=== PATIENT | female | born 1990 | race Caucasian/White ===

== ENCOUNTER → 2020-03-30 | Outpatient (REF) | payer BC | LOC: M PLALAB 10:12 | PROVIDERS: ATTEND Advanced Practice Midwife | DX: Z34.02 Encounter for supervision of normal first pregnancy, second trimester (principal) ==

== ENCOUNTER → 2020-04-27 | Outpatient (CLI) | payer BC ==
--- NOTE | 2020-04-27 09:00 | REP ---
INDICATION: F/U ANATOMY COMPARISON: None. TECHNIQUE: Transabdominal obstetrical ultrasound with color Doppler evaluation. FINDINGS: Examination demonstrates a single live intrauterine in breech presentation. motion is identified by technologist. Placenta is noted anterior and grade 1 without evidence for placenta previa or abruption. Amniotic fluid volume is normal. Cervix measures 3.4 cm in length and appears closed.. Gestational age by LMP 28 weeks 0 days with YULI 07/20/2020. Gestational age by current measurements 27 weeks 1 day with YULI 07/26/2020. FHR equals 140 beats per minute. ELINOR: 11.8 cm Estimated weight 1024 grams (12thpercentile). Anatomical assessment demonstrates normal structures including cranium, cavum septum pellucidum, falx, cerebellum, facial features, four-chamber heart, stomach, bladder, and three-vessel cord.. IMPRESSION: 1. Single live intrauterine in breech presentation demonstrating appropriate estimated weight. 2. Anatomical structures appear relatively normal. The stomach is relatively normal in appearance and if necessary ultrasound and or GI examination can be considered for further investigation if necessary. <Electronically signed by Milad Funes > 04/27/20 [id number]
== END ==
LOC: M WHC 07:56
PROVIDERS: ATTEND Advanced Practice Midwife
DX: Z36.9 Encounter for antenatal screening, unspecified (principal); Z3A.27 27 weeks gestation of pregnancy

== ENCOUNTER → 2020-05-04 | Outpatient (REF) | payer BC, OTHER ==
[2020-05-04 13:44] LABS: HEMATOCRIT 36.9 % (36.0-47.0); HEMOGLOBIN 12.4 g/dl (12.0-15.5); MEAN CORPUSCULAR HEMOGLOBIN 31.4 pg (27.0-33.0); MEAN CORPUSCULAR HGB CONC 33.6 g/dl (32.0-36.5); MEAN CORPUSCULAR VOLUME 93.4 fl (80.0-96.0); PLATELET COUNT, AUTOMATED 232 10^3/uL (150-450); RED BLOOD COUNT 3.95 10^6/uL (4.00-5.40); WHITE BLOOD COUNT 14.5 10^3/uL (4.0-10.0)
== END ==
LOC: M LABDRWAD 12:39
PROVIDERS: ATTEND Advanced Practice Midwife
DX: Z34.02 Encounter for supervision of normal first pregnancy, second trimester (principal)

== ENCOUNTER 2020-05-11 14:45 | Outpatient (CLI) | payer BC, OTHER ==
[~2020-05-11] VITALS: Ht 162.6 cm; Wt 92.4 kg
[2020-05-11 14:59] VITALS: BP 133/79
[2020-05-11] MEDS ORDERED: PRENTAB9 PO (15:15)
[2020-05-11] MEDS ORDERED: [UNRECOGNIZED DRUG - CODE] PO (15:15)
[2020-05-11 15:56] LABS: HEMATOCRIT 37.5 % (36.0-47.0); HEMOGLOBIN 12.6 g/dl (12.0-15.5); MEAN CORPUSCULAR HEMOGLOBIN 30.8 pg (27.0-33.0); MEAN CORPUSCULAR HGB CONC 33.6 g/dl (32.0-36.5); MEAN CORPUSCULAR VOLUME 91.7 fl (80.0-96.0); PLATELET COUNT, AUTOMATED 231 10^3/uL (150-450); RED BLOOD COUNT 4.09 10^6/uL (4.00-5.40); WHITE BLOOD COUNT 12.3 10^3/uL (4.0-10.0)
--- NOTE | 2020-05-11 16:35 | REP ---
INDICATION: post fall COMPARISON: 04/27/2020 TECHNIQUE: Transabdominal obstetrical ultrasound with color Doppler evaluation. FINDINGS: Examination demonstrates a single live intrauterine in breech presentation. motion is identified by technologist. Placenta is noted anterior and grade 0 without evidence for placenta previa or abruption. Amniotic fluid volume is normal. Cervix measures 3.6 cm in length and appears closed. Amniotic fluid index: 12.7 cm (9.0-23.4) Biophysical profile score: 8/8. Umbilical artery 1 SD ratio: 2.60 (1.96-4.10) Umbilical artery 2 SD ratio: 2.10 (1.96-4.10) Gestational age by 1st U/S 30 weeks 0 days with YULI 07/20/2020. Gestational age by current measurements 28 weeks 1 day with YULI 08/02/2020. FHR equals 155 beats per minute. Estimated weight 1108 grams (less than 3rdpercentile based on age by 1st ultrasound). IMPRESSION: 1. Single live intrauterine in breech presentation demonstrating normal amniotic fluid index, biophysical profile score. 2. Questionable discrepancy between gestational age and estimated weight warrants correlation. <Electronically signed by Milad Funes > 05/11/20 [id number]
--- NOTE | 2020-05-11 18:06 | IPNPDOC ---
Text Note Date of Service The patient was seen on 05/11/20. NOTE Outpatient 29yo G1 YULI 07/20/2020. Presents at 30wks after falling on ice, landing on arm and side of abdomen. Denies LOF, bleeding or regular UC. Reports good activity. No distress Cat I tracing BPP 10/14, growth sono <3% 1108gm, discrepancies noted between current sono and most recent sono. Dopplers 2.60 and 2.10. ELINOR 12.7. No previa or evidence abruption KB 0.0030 discharged home after 4 hours. Reviewed discrepant sono's with patient. Ordered f/u for 3 wks with BPP Discharged home. Warnings reviewed. Keep appt Thursday VS,Fishbone, I+O VS, Fishbone, I+O Laboratory Tests 05/11/20 15:30 Vital Signs Date Time Temp Pulse Resp B/P (MAP) Pulse Ox O2 Delivery O2 Flow Rate FiO2 05/11/20 14:59 99.7 86 18 133/79 (97) Charito An CNM May 11, 2020 18:06
== END 2020-05-11 18:05 | disposition home or self-care (01) ==
LOC: M LDO 14:45
PROVIDERS: ATTEND Advanced Practice Midwife
DX: O99.891 Other specified diseases and conditions complicating pregnancy (principal); W00.0XXA Fall on same level due to ice and snow, initial encounter; Z3A.30 30 weeks gestation of pregnancy
CPT/HCPCS: 36415; 59025; 76816; 76819; 76820; 85027; 85460; G0378; G0463

== ENCOUNTER → 2020-05-18 | Outpatient (CLI) | payer BC ==
[~2020-05-18] MED LIST: PRENTAB9 PO; [UNRECOGNIZED DRUG - CODE] PO
--- NOTE | 2020-05-18 15:04 | REP ---
INDICATION: GROWTH/BPP COMPARISON: 05/11/2020 TECHNIQUE: Transabdominal obstetrical ultrasound with color Doppler evaluation. FINDINGS: Examination demonstrates a single live intrauterine in cephalic presentation. motion is identified by technologist. Placenta is noted anterior and grade 1 without evidence for placenta previa or abruption. Amniotic fluid volume is normal. Cervix measures 3.0 cm in length and appears closed.. Gestational age by LMP 31 weeks 0 days with YULI 07/20/2020. Gestational age by current measurements 28 weeks 4 days with YULI 08/06/2020. FHR equals 155 beats per minute. ELINOR: 11.0 cm (8.8-23.8) Biophysical profile score: 8/8 Estimated weight 1215 grams (less than 3rdpercentile based on age at 31 weeks 0 days). Umbilical artery 1 SD ratio: 2.56 (1.90-3.98) Umbilical artery 2 SD ratio: 2.68 IMPRESSION: 1. Single live advanced gestation in cephalic presentation. Less than expected interval growth is noted when using the given age by EDC. 2. Normal amniotic fluid volume, biophysical profile score, and umbilical artery Doppler. <Electronically signed by Milad Funes > 05/18/20 [id number]
== END ==
LOC: M WHC 09:28
PROVIDERS: ATTEND Advanced Practice Midwife
DX: O26.843 Uterine size-date discrepancy, third trimester (principal); O36.5930 Maternal care for other known or suspected poor fetal growth, third trimester, not applicable or unspecified; Z3A.31 31 weeks gestation of pregnancy

== ENCOUNTER → 2020-05-25 | Outpatient (CLI) | payer BC ==
--- NOTE | 2020-05-26 19:58 | REP ---
INDICATION: IUGR,GROWTH,BPP COMPARISON: 05/18/2020 TECHNIQUE: Transabdominal obstetrical ultrasound with color Doppler evaluation. FINDINGS: Examination demonstrates a single live intrauterine in cephalic presentation. motion is identified by technologist. Placenta is noted anterior and grade 1 without evidence for placenta previa or abruption. Amniotic fluid volume is normal. Cervix measures 3.5 cm in length and appears closed.. Gestational age by LMP and 1st ultrasound 32 weeks 0 days with YULI 07/20/2020. Gestational age by current measurements 30 weeks 0 days with YULI 08/03/2020. FHR equals 160 beats per minute. BPD: 7.7 cm at 30 weeks 6 days HC: 27.7 cm at 30 weeks 2 days AC: 26.6 cm at 30 weeks 5 days FL: 5.6 cm at 29 weeks 3 days HL: 4.9 cm at 28 weeks 6 days HC/AC: 1.04 Estimated weight 1543 grams (less than 3rdpercentile). ELINOR: 12.9 cm (8.6-24.2) Biophysical profile score: 8/8 Umbilical artery 1 SD ratio: 2.33 (1.84-3.87) Umbilical artery 2 SD ratio: 2.37 IMPRESSION: Single live advanced gestation in cephalic presentation demonstrating less than expected interval growth. Amniotic fluid index and biophysical profile score are normal. <Electronically signed by Milad Funes > 05/26/201953
== END ==
LOC: M WHC 15:24
PROVIDERS: ATTEND Advanced Practice Midwife
DX: O36.5930 Maternal care for other known or suspected poor fetal growth, third trimester, not applicable or unspecified (principal); O26.843 Uterine size-date discrepancy, third trimester; Z3A.32 32 weeks gestation of pregnancy

== ENCOUNTER → 2020-06-01 | Outpatient (CLI) | payer BC ==
--- NOTE | 2020-06-01 16:51 | REP ---
INDICATION: IUGR,BPP. COMPARISON: 05/25/2020. TECHNIQUE: Multiple sonographic images of the gravid uterus. FINDINGS: There is a single intrauterine gestation in the breech presentation. The placenta is anterior with grade 2 maturity. There is no placenta previa. heart rate is 140 beats per minute. Subjectively the amniotic fluid volume is normal. ELINOR: 13.6 (8.3-24.5). biophysical profile: Breathing 2 Tone 2 Movement 2 AFB 2 Total: 10/14 Umbilical artery Doppler assessment: Umbilical artery 1: PSV 35.1 centimeters/second EDV 13.6 centimeters/second S/D 2.58 (1.79-3.77) RI 0.61 (0.48-0.74) Umbilical artery 2: PSV 38.5 cm/S EDV 13.1 cm/S SD 2.94 RI 0.66 IMPRESSION: biophysical profile as above. <Electronically signed by Haseeb Hayden > 06/01/20 1817
== END ==
LOC: M WHC 07:56
PROVIDERS: ATTEND Advanced Practice Midwife
DX: O26.849 Uterine size-date discrepancy, unspecified trimester (principal); Z3A.00 Weeks of gestation of pregnancy not specified

== ENCOUNTER → 2020-06-08 | Outpatient (CLI) | payer BC ==
--- NOTE | 2020-06-08 08:56 | REP ---
INDICATION: IUGR,BPP,GROWTH. COMPARISON: 06/01/2020, 05/25/2020. TECHNIQUE: Standard follow-up Ob ultrasound with the growth measurements, umbilical artery Doppler and biophysical profile FINDINGS: Scanning demonstrates a viable single intrauterine gestation in a cephalic lie. motion is observed and heart rate is recorded at 138 beats per minute. The posterior, grade II placenta is seen without evidence of previa. Amniotic fluid is subjectively normal. The ELINOR measurement is 11.5 cm (normal 8.1-24.8). The closed cervical length is measured at 3.2 cm transabdominally. No extrauterine abnormality is observed. There has been appropriate interval growth. Umbilical artery Doppler shows SD ratios of 3.07 and 2.5 in the 2 umbilical arteries in their mid course. Normal forward diastolic flow is maintained. Cord insertion is mid placental. No anatomic screening was performed. Biometry chart: BPD 8.1 cm; 32 weeks 5 days Head circumference 28.7 cm; 31 weeks 4 days Abdominal circumference 27.8 cm; 31 weeks 6 days Femur length 5.8 cm; 30 weeks 1 days Humeral length 5.3 cm; 30 weeks 4 days HC/AC ratio normal 1.03 Cephalic index normal 0.81 Estimated weight 1752 grams, 3 pounds 13 ounces, <3rd percentile for 34 weeks 0 days. Biophysical profile: Breathing 2, tone 2, movement 2, AFV 2. IMPRESSION: Viable single intrauterine gestation at 31 weeks 3 days by today's composite sonographic criteria. Expected gestational age estimate based on prior initial sonography is 34 weeks is 0 days. YULI by prior sonography 07/20/2020. The growth curves are flattened. Findings consistent with IUGR Biophysical profile score: 8/8 <Electronically signed by Tutu Reynolds > 06/08/20 0852
== END ==
LOC: M WHC 08:04
PROVIDERS: ATTEND Advanced Practice Midwife
DX: O36.5930 Maternal care for other known or suspected poor fetal growth, third trimester, not applicable or unspecified (principal); O26.849 Uterine size-date discrepancy, unspecified trimester; Z3A.31 31 weeks gestation of pregnancy

== ENCOUNTER → 2020-06-15 | Outpatient (CLI) | payer BC ==
--- NOTE | 2020-06-15 09:18 | REP ---
INDICATION: IUGR,BPP. COMPARISON: 06/08/2020. TECHNIQUE: Multiple sonographic images of the gravid uterus. FINDINGS: There is a single intrauterine gestation in a cephalic presentation. The placenta is anterior with grade 1 maturity. There is no previa. There is a three-vessel cord. The cord inserts centrally onto the placenta. Cervix measures 3.4 cm. heart rate is 124 beats per minute. Amniotic fluid index is 12.7. Normal is 7.9-24.9. Gestational age according to the 1st ultrasound this gestational is 35 weeks 0 days with an YULI of 07/20/2020. The LMP is unknown. biophysical profile: Breathing 2 Tone 2 Movement 2 AFV 2 Total 8/8. Umbilical artery Doppler evaluation: Umbilical artery 1: PSV 31.2 cm/S EDV 12.2 cm/S S/D 2.56 (1.68-3.59) RI 0.61 (0.46-0.72 Umbilical artery 2: PSV 37.5 cm/S YULI 12.2 cm/S S/D 3.07 RI 0.67 IMPRESSION: measurements as above. <Electronically signed by Haseeb Hayden > 06/15/20 0914
== END ==
LOC: M WHC 08:04
PROVIDERS: ATTEND Advanced Practice Midwife
DX: O26.849 Uterine size-date discrepancy, unspecified trimester (principal)

== ENCOUNTER 2020-06-22 13:57 | Outpatient (CLI) | payer BC, OTHER ==
[~2020-06-22] VITALS: Ht 162.6 cm; Wt 95.3 kg
[~2020-06-22 13:57] MED LIST changes: -IBUP80TA PO; -PERCOCET PO; -TUMS500C PO
[2020-06-22 14:24] VITALS: BP 138/92
[2020-06-22] MEDS ORDERED: BETAMETHASONE SOLUSPAN 6MG/ML 5ML VIAL (J0702 PER 3MG) IM ONE ×2 (14:40→15:00)
[2020-06-23] MEDS ORDERED: TUMS500C PO (14:14)
== END 2020-06-22 15:10 | disposition home or self-care (01) ==
LOC: M LDO 13:57
PROVIDERS: ATTEND Advanced Practice Midwife
DX: O36.5930 Maternal care for other known or suspected poor fetal growth, third trimester, not applicable or unspecified (principal); Z3A.36 36 weeks gestation of pregnancy; O13.3 Gestational [pregnancy-induced] hypertension without significant proteinuria, third trimester; Z79.899 Other long term (current) drug therapy
CPT/HCPCS: 96372; G0378; J0702

== ENCOUNTER → 2020-06-22 | Outpatient (CLI) | payer BC ==
[~2020-06-22] MED LIST changes: +IBUP80TA PO; +PERCOCET PO; +TUMS500C PO
--- NOTE | 2020-06-22 09:36 | REP ---
INDICATION: IUGR,GROWTH,BPP COMPARISON: 06/15/2020 TECHNIQUE: Transabdominal obstetrical ultrasound with color Doppler evaluation. FINDINGS: Examination demonstrates a single live intrauterine in cephalic presentation. motion is identified by technologist. Placenta is noted anterior and grade 2 without evidence for placenta previa or abruption. Amniotic fluid volume is normal. Cervix measures 3.2 cm in length and appears closed.. Gestational age by LMP and 1st U/S 36 weeks 0 days with YULI 07/20/2020. Gestational age by current measurements 31 weeks 3 days with YULI 08/21/2020. FHR equals 152 beats per minute. BPD: 8.1 cm at 32 weeks 5 days HC: 29.7 cm at 32 weeks 6 days AC: 25.6 cm at 29 weeks 5 days FL: 6.0 cm at 31 weeks 1 day HL: 5.3 cm at 30 weeks 5 days HC/AC: 1.16 Estimated weight 1622 grams (less than 3rdpercentile based on age by 1st ultrasound at 36 weeks 0 days). ELINOR: 12.2 cm Biophysical profile score: 8/8 Umbilical artery SD ratio: 3.05, 2.84 (1.64-3.51) IMPRESSION: 1. Single live intrauterine in cephalic presentation. Less than expected interval growth is noted based on given age at 36 weeks 0 days by 1st ultrasound and YULI. 2. ELINOR and biophysical profile score are normal. <Electronically signed by Milad Funes > 06/22/20 0933
== END ==
LOC: M WHC 06:36
PROVIDERS: ATTEND Advanced Practice Midwife
DX: O36.5930 Maternal care for other known or suspected poor fetal growth, third trimester, not applicable or unspecified (principal)

== ENCOUNTER 2020-06-23 14:05 | Inpatient (IN) | payer BC, OTHER ==
[2020-06-23] VITALS (11 sets, daily range): BP systolic 135–173; BP diastolic 64–93
[~2020-06-23] VITALS: Ht 162.6 cm; Wt 97.6 kg
[2020-06-23] MEDS ORDERED: TUMS500C PO (14:14)
[2020-06-23] MEDS ORDERED: OXYTOCIN DRIP 30 UNITS in IV 1 EA IV PRN (14:15)
[2020-06-23] MEDS ORDERED: LIDOCAINE 1% MDV 20ML VIAL INFIL PRN (14:15)
[2020-06-23] MEDS ORDERED: LACTATED RINGER'S 1000 ML IV STA (14:15)
[2020-06-23] MEDS ORDERED: BETAMETHASONE SOLUSPAN 6MG/ML 5ML VIAL (J0702 PER 3MG) IM ONE (14:20)
[2020-06-23 14:58] LABS: HEMATOCRIT 35.6 % (36.0-47.0); HEMOGLOBIN 12.7 g/dl (12.0-15.5); MEAN CORPUSCULAR HEMOGLOBIN 32.4 pg (27.0-33.0); MEAN CORPUSCULAR HGB CONC 35.7 g/dl (32.0-36.5); MEAN CORPUSCULAR VOLUME 90.8 fl (80.0-96.0); PLATELET COUNT, AUTOMATED 192 10^3/uL (150-450); RED BLOOD COUNT 3.92 10^6/uL (4.00-5.40); WHITE BLOOD COUNT 24.7 10^3/uL (4.0-10.0)
[2020-06-23] MEDS: miSOPROStol 50MCG 1/2 TABLET PO SCH ×3 (15:00→23:14)
[2020-06-23 15:21] LABS: ALT/SGPT 14 U/L (12-78); BILIRUBIN,TOTAL 0.2 MG/DL (0.2-1.0); CREATININE FOR GFR 0.71 MG/DL (0.55-1.30); GLOMERULAR FILTRATION RATE > 60.0 (>60); LDH LACTATE DEHYDROGENASE 168 U/L (84-246); URIC ACID 6.5 MG/DL (2.6-6.0)
--- NOTE | 2020-06-23 15:57 | HPE ---
HISTORY AND PHYSICAL DATE OF ADMISSION: 06/23/2020 SUBJECTIVE: Tonie is a 29-year-old 1, para 0 at 36 weeks and 1 day with an estimated date of confinement (EDC) of 07/20/2020 based on last menstrual period and confirmed by first trimester ultrasound. She presents to labor and delivery today for induction of labor per consult with Dr. Maryan Chan due to gestational hypertension and intrauterine growth restriction that has demonstrated no growth in the last 2 weeks. Her care was initiated in [place], [place], with a transfer of care to [facility] at 24 weeks gestation. Her course complicated by intrauterine growth restriction (IUGR) that started at 30 weeks gestation followed by gestational hypertension. OBSTETRIC HISTORY: Prima . OBSTETRIC LABORATORY DATA: O positive, antibody screen negative, hepatitis B surface antigen negative, HIV negative, Gonorrhea and chlamydia negative, T. pallidum negative, Varicella immune, rubella immune. Pap normal. Quad screen negative for aneuploidy and her AFP negative for open neural tube defect. Cystic fibrosis carrier screening negative. Gestational diabetic screening normal at 122, and her GBS is negative. PAST MEDICAL HISTORY: Asthma. FAMILY HISTORY: Malignant tumor of testes, leukemia, depression. SURGERIES: None. SOCIAL HISTORY: The patient is . She is a former smoker. She denies alcohol use. Denies any current drug use during her . She is employed by [employer]. Denies history of sexually transmitted infections. Denies history of abuse: physical, sexual and emotional. ALLERGIES: No known drug allergies. CURRENT MEDICATION: vitamin. OBJECTIVE: Temperature 98.8, pulse 72, respirations 20, blood pressure (BP) is 148/84. She is alert and oriented times three. heart rate is 130 with moderate variability. Positive accelerations. Negative decelerations. There is no pattern of regular contractions. Abdomen is gravid, cephalic presentation. Estimated weight 4 pounds. Sterile vaginal exam: Closed, 50% effaced, -2 station, posterior, moderate texture. No show. Ultrasound yesterday on 06/22/2020 demonstrated fetus in cephalic presentation. Estimated weight 1622 grams, which is less than the 3rd% percentile, and a decrease from the prior growth ultrasound. Biophysical profile was 8/8. Her amniotic index (ELINOR) was 12.2. ASSESSMENT: Intrauterine at 36 weeks, 1/7 day. heart rate category 1. IUGR less than the third percentile, gestational hypertension. PLAN: Admit the patient to labor and delivery. Saline lock for intravenous (IV) access. She has received her second betamethasone injection, 12 mg. I plan to order routine laboratories as well as repeat pre-eclamptic profile. Out of bed ad imelda. Regular diet at this time. I plan to start misoprostol 50 mcg by mouth every 4 hours for cervical ripening. May consider Jacob bulb insertion. Cook's catheter. May consider artificial rupture of membranes (AROM) at some pint. Will likely start Pitocin for labor induction when cervix is more ripe for labor. The patient is considering IV pain medications and/or an epidural for her labor coping when she is in active labor. I did review risks, benefits, and alternatives with the patient. She and her 's questions have been answered. She has been verbally consented for emergency surgery and blood products if they are necessary. I do anticipate cervical ripening. GUILLE
[2020-06-23] MEDS: CALCIUM CARBONATE 500 MG CHEW U/D PO PRN (18:49)
[2020-06-24] VITALS (22 sets, daily range): BP systolic 125–173; BP diastolic 63–96
[2020-06-24] MEDS: CALCIUM CARBONATE 500 MG CHEW U/D PO PRN ×4 (00:20→13:51)
[2020-06-24] MEDS: miSOPROStol 50MCG 1/2 TABLET PO SCH ×2 (04:01→08:09)
[2020-06-24] MEDS ORDERED: LR 1,000 ML IV SCH ×2 (08:45→15:35)
[2020-06-24] MEDS ORDERED: OXYTOCIN DRIP 30 UNITS in IV 1 EA IV SCH ×2 (08:45→15:35)
[2020-06-24] MEDS ORDERED: BICITRA 30ML SOLN UDC PO ONE (14:40)
[2020-06-24] MEDS ORDERED: AZITHROMYCIN INJ 500 MG, VIAL MATE ADAPTER 1 EACH in NS 250 ML IV ONE (14:40)
[2020-06-24] MEDS ORDERED: ceFAZolin SOD 2 GM in IV 1 EA IV ONE (14:40)
[2020-06-24] MEDS ORDERED: LACTATED RINGER'S 1000 ML IV STA (14:40)
[2020-06-24 15:03] LABS: HEMOGLOBIN 13.5 g/dl (12.0-15.5); MEAN CORPUSCULAR HEMOGLOBIN 31.9 pg (27.0-33.0); MEAN CORPUSCULAR HGB CONC 34.6 g/dl (32.0-36.5); MEAN CORPUSCULAR VOLUME 92.2 fl (80.0-96.0); PLATELET COUNT, AUTOMATED 222 10^3/uL (150-450); RED BLOOD COUNT 4.23 10^6/uL (4.00-5.40)
[2020-06-24 15:26] LABS: ALT/SGPT 16 U/L (12-78); BILIRUBIN,TOTAL 0.2 MG/DL (0.2-1.0); CREATININE FOR GFR 0.78 MG/DL (0.55-1.30); GLOMERULAR FILTRATION RATE > 60.0 (>60); LDH LACTATE DEHYDROGENASE 172 U/L (84-246); URIC ACID 6.7 MG/DL (2.6-6.0)
[2020-06-24] MEDS ORDERED: METOCLOPRAMIDE INJ 10MG/2ML VIAL (J2765 PER 1) IV PRN (15:30)
[2020-06-24] MEDS ORDERED: NALBUPHINE HCL 10 MG/ML AMP (J2300) IV PRN (15:30)
[2020-06-24] MEDS ORDERED: ONDANSETRON 4MG/2ML VIAL IV PRN ×3 (15:30→16:50)
[2020-06-24] MEDS ORDERED: diphenhydrAMINE 50MG/ML VIAL (J1200) IV PRN (15:30)
[2020-06-24] MEDS ORDERED: NALOXONE INJ 0.4MG/1ML VIAL (J2310 PER 1MG) IV PRN ×2 (15:30)
[2020-06-24] MEDS ORDERED: MEASLES,MUMPS,RUBELLA VACCINE INJ (MMR-II) (90707) SC SCH (15:35)
[2020-06-24] MEDS ORDERED: MOM 30ML SUSPENSION UDC PO PRN (15:35)
[2020-06-24] MEDS ORDERED: PERCOCET 5MG/325MG TAB PO PRN (15:35)
[2020-06-24] MEDS ORDERED: RHOGAM 300 MCG (1500 IU) INJ (J2790) IM SCH (15:35)
[2020-06-24] MEDS ORDERED: KETOROLAC 60MG 2ML VIAL As Ordered ONE (15:39)
[2020-06-24] MEDS ORDERED: MORPHINE PRES-FREE INJ 10 MG/10 ML VIAL (J2274) As Ordered ONE (15:39)
[2020-06-24] MEDS ORDERED: ONDANSETRON 4MG/2ML VIAL As Ordered ONE (15:39)
[2020-06-24] MEDS ORDERED: OXYTOCIN 30 UNITS IN 0.9% NaCl 500ML IV BAG (J2590) As Ordered ONE (15:39)
[2020-06-24] MEDS ORDERED: dexameTHASONE 4 MG/ML 1ML VIAL (J1100 PER 1MG) As Ordered ONE (15:39)
[2020-06-24] MEDS ORDERED: METOCLOPRAMIDE INJ 10MG/2ML VIAL (J2765 PER 1) As Ordered ONE (16:06)
[2020-06-24] MEDS ORDERED: MIDAZOLAM INJ 2MG/2ML VIAL (J2250 PER 1MG) As Ordered ONE (16:19)
[2020-06-24] MEDS ORDERED: fentaNYL 100 MCG/2 ML INJECTION (J3010) IV PRN (16:50)
[2020-06-24] MEDS ORDERED: fentaNYL 100 MCG/2 ML INJECTION (J3010) As Ordered ONE (17:10)
[2020-06-24] MEDS: DOCUSATE SODIUM 100MG CAPSULE PO SCH (21:14)
[2020-06-24] MEDS: KETOROLAC 30 MG/ML 1ML VIAL IV SCH (21:15)
[2020-06-24] MEDS: SIMETHICONE 80MG CHEW TAB PO PRN (21:15)
--- NOTE | 2020-06-24 23:02 | ROOPDOC ---
[facility] Report Of Operation Report of Operation DATE OF PROCEDURE: 06/24/20 SURGEON: Maryan Chan M.D. BLOOD BANK ASSISTANT: Odessa Farrell CNM ( essential for tissue retractions, exposure and delivery of ) PROCEDURE: Primary section PREOPERATIVE DIAGNOSIS: 1. Category 2 heart rate tracing 2. Inability to augment labor 3. Severe intrauterine growth restriction 4. Gestational hypertension POSTOPERATIVE DIAGNOSIS: 1. Category 2 heart rate tracing 2. Inability to augment labor 3. Severe intrauterine growth restriction 4. Gestational hypertension ANESTHESIA: Spinal ESTIMATED BLOOD LOSS: 500 mL URINE OUTPUT: 100 mL INTRAVENOUS FLUIDS:400 mL of lactated Ringer's solution PREOPERATIVE ANTIBIOTICS:. 2 g of Ancef and 500 azithromycin OPERATIVE FINDINGS: Liveborn male , Apgars 9 and 9. Weight 1620 g or 3 lbs. 9 oz. SPECIMENS: Placenta DESCRIPTION OF PROCEDURE: After informed consent was obtained and written consent was reviewed. The patient was brought to the operating room where spinal anesthesia was placed. She was then placed in the supine position with a left lateral tilt. Jacob catheter was placed and to gravity. Patient was then prepped and draped in the normal sterile fashion. A timeout operating room was performed identifying the patient, procedure be performed as well as drug allergies. Anesthesia was tested and deemed to be adequate. Pfannenstiel skin incision was made and this was carried down to the underlying rectus fascia. The fascia was then scored and this incision was extended bilaterally. The fascia was then dissected off the underlying rectus muscle superiorly and inferiorly. The rectus muscles were then in the midline. The peritoneum is then entered. Vesicouterine peritoneum was then tented and excised and a bladder flap was created. Mobius retractor was then placed. Next, a curvilinear incision was then made in the lower uterine segment. Amniotomy was performed, productive, clear fluid. The head was brought to the level of the incision atraumatically and delivered along the shoulders and corpus. The cord was clamped x2. The infant was brought over to the warmer with a good cry. Placenta was drained and delivered grossly intact. The uterus was cleared of all clots and debris and the uterine incision was then closed using 0 Vicryl in a running locking fashion followed. This was followed by second layer of 0 Vicryl in a nonlocking fashion for imbrication. The abdomen suctioned. Surgical sites reinspected and noted be hemostatic. The retractor was then removed. The anterior peritoneum was then reapproximated with 3-0 Vicryl. The rectus muscles were reapproximated 3-0 Vicryl. The fascia was then closed using 0 Vicryl in a running nonlocking fashion. The subcutaneous tissues was then irrigated and suctioned. Subcutaneous tissue was reapproximated using 3-0 Vicryl. Several subdermal stitch is placed using 3-0 Vicryl and the skin was closed with 4-0 Monocryl and subcuticular fashion. This incision was then cleaned and dried and was dressed. The patient was then taken to recovery in stable condition. All counts were correct. My surgical endoscopist Odessa Farrell played in an essential role during the operation. She assisted with tissue identification retraction, delivery of the , as well as wound closure. MARYAN CHAN MD. Jun 24, 2020 23:02
[2020-06-24] MEDS ORDERED: IBUP80TA PO (23:04)
[2020-06-24] MEDS ORDERED: PERCOCET PO ×2 (23:04→23:06)
[2020-06-25 02:00] VITALS: BP 118/66
[2020-06-25] MEDS: KETOROLAC 30 MG/ML 1ML VIAL IV SCH ×2 (04:17→09:56)
[2020-06-25 06:00] VITALS: BP 144/60
--- NOTE | 2020-06-25 07:09 | IPNPDOC ---
Progress Note Date of Service: Jun 25, 2020 Day#: 1 Progress Note SUBJECT: Doing well without complaints. Ambulating, voiding and pain is well- controlled. Reports minimal lochia. OBJECTIVE: VITAL SIGNS: Within normal limits, afebrile. Alert and oriented times three. Abdomen: Fundus firm at U-2. Soft, NTTP. Incision: dressed Ext: neg calf tenderness. ASSESSMENT: /postoperative day #1 status post delivery. Recovering in stable condition. PLAN: 1. Continue routine /postoperative care 2. Discharge plans for tomorrow VS, I&O, 24H, Fishbone Vital Signs/I&O Vital Signs Date Time Temp Pulse Resp B/P (MAP) Pulse Ox O2 Delivery O2 Flow Rate FiO2 06/25/20 06:00 98.1 65 18 144/60 (88) 98 Room Air I&O- Last 24 Hours up to 6 AM 06/25/20 06:00 Intake Total 3181 ml Output Total 1550 ml Balance 1631 ml Laboratory Data 24H LABS Laboratory Tests 2 06/24/20 14:53: Glomerular Filtration Rate > 60.0, Uric Acid 6.7H, Total Bilirubin 0.2, Aspartate Amino Transf (AST/SGOT) 15, Alanine Aminotransferase (ALT/SGPT) 16, Lactate Dehydrogenase 172 06/24/20 14:54: Nucleated Red Blood Cells % (auto) 0.0 CBC/BMP Laboratory Tests 06/24/20 14:53 06/24/20 14:54 Microbiology Microbiology 06/23/20 Respiratory Virus Panel (PCR) ([facility]ENDA) - Final, Complete HEAVEN LOPEZ MD. Jun 25, 2020 07:09
[2020-06-25 09:08] LABS: HEMATOCRIT 31.1 % (36.0-47.0); HEMOGLOBIN 10.6 g/dl (12.0-15.5); MEAN CORPUSCULAR HEMOGLOBIN 31.8 pg (27.0-33.0); MEAN CORPUSCULAR HGB CONC 34.1 g/dl (32.0-36.5); MEAN CORPUSCULAR VOLUME 93.4 fl (80.0-96.0); PLATELET COUNT, AUTOMATED 175 10^3/uL (150-450); RED BLOOD COUNT 3.33 10^6/uL (4.00-5.40); WHITE BLOOD COUNT 25.6 10^3/uL (4.0-10.0)
[2020-06-25] MEDS: PRENATAL VITAMINS CHEWABLE TABLET PO SCH (09:55)
[2020-06-25] MEDS: DOCUSATE SODIUM 100MG CAPSULE PO SCH ×2 (09:55→21:43)
[2020-06-25] MEDS: SIMETHICONE 80MG CHEW TAB PO PRN (09:59)
[2020-06-25 10:20] VITALS: BP 156/71
[2020-06-25] MEDS: PERCOCET 5MG/325MG TAB PO PRN ×3 (12:35→22:25)
[2020-06-25 14:00] VITALS: BP 159/83
[2020-06-25 18:00] VITALS: BP 140/87
[2020-06-25] MEDS: IBUPROFEN 800 MG TAB PO SCH (18:59)
[2020-06-25 22:00] VITALS: BP 134/74
[2020-06-26 02:00] VITALS: BP 144/74
[2020-06-26] MEDS: IBUPROFEN 800 MG TAB PO SCH ×2 (02:34→10:47)
[2020-06-26 06:00] VITALS: BP 134/78
[2020-06-26] MEDS: DOCUSATE SODIUM 100MG CAPSULE PO SCH ×2 (08:42→08:47)
[2020-06-26] MEDS: PRENATAL VITAMINS CHEWABLE TABLET PO SCH (08:42)
--- NOTE | 2020-06-26 11:22 | DS.PDOC ---
Discharge Summary General Date of Admission Jun 23, 2020 at 14:05 Date of Discharge 06/26/20 Discharge Summary DATE OF ADMISSION: 06/23/2020 DATE OF DISCHARGE: 06/26/2020 ADMISSION DIAGNOSIS: 36+ weeks gestation. growth restriction , gestational hypertension DISCHARGE DIAGNOSIS: Same; status post primary low transverse section DISCHARGE SUMMARY: The patient was admitted at 36+ weeks gestation with a diagnosis of growth restriction. Labor course complicated by a nonreassuring heart rate tracing, which prompted a delivery. The section delivery was uncomplicated. Her postoperative course was uncomplicated as well. On postoperative day #2, she was meeting all discharge criteria. PHYSICAL EXAMINATION ON DATE OF DISCHARGE: Normotensive. Normal heart rate. Afebrile. HEART: Regular rate and rhythm. No murmurs, gallops, or rubs. LUNGS: Clear to auscultation bilaterally. ABDOMEN: Soft, nontender, nondistended. Incision bandage clean and dry. EXTREMITIES: Nonedematous, nontender. She was meeting all discharge criteria on postoperative day #2. We reviewed routine fever, infectious, pain, and bleeding precautions. She is to followup in 2 weeks for incision check. Her postoperative medications are Percocet, Motrin, and Colace. Vital Signs/I&Os Vital Signs Date Time Temp Pulse Resp B/P (MAP) Pulse Ox O2 Delivery O2 Flow Rate FiO2 06/26/20 06:00 98.8 76 16 134/78 (96) 97 Room Air I&O- Last 24 Hours up to 6 AM 06/26/20 06:00 Output Total 1050 ml Balance -1050 ml Microbiology Microbiology 06/23/20 Respiratory Virus Panel (PCR) ([facility]ENDA) - Final, Complete Discharge Medications Scheduled Calcium Carbonate (Tums) 200 Mg Tab.chew, 2 TAB PO Q4H for cough and congestion, (Reported) Doxylamine Succinate/Vit B6 (Bonjesta ER 20-20 mg Tablet) 1 Each Tab.ir.dr, 1 TAB PO QHS, (Reported) Ibuprofen (Ibuprofen) 800 Mg Tablet, 800 MG PO Q8H No.137/Iron/Folic Acd ( Vitamin Tablet) 1 Each Tablet, 1 TAB PO DAILY, (Reported) Scheduled PRN Oxycodone/Acetaminophen (Oxycodone-Acetaminophen 5-325) 1 Each Tablet, 1-2 TAB PO Q6H PRN for SEVERE PAIN (PS 8-10) Oxycodone/Acetaminophen (Oxycodone-Acetaminophen 5-325) 1 Each Tablet, 1-2 TAB PO Q6H PRN for SEVERE PAIN (PS 8-10) Allergies Coded Allergies: No Known Allergies (Verified Allergy, Unknown, 05/11/20) RAMU ROSARIO DO Jun 26, 2020 11:22
== END 2020-06-26 11:30 | disposition home or self-care (01) | DRG 540 ==
LOC: M LDI 14:05 → M OBS 06-24 18:21
PROVIDERS: ADMIT Advanced Practice Midwife; ATTEND Obstetrics & Gynecology
PROC: 3E0P7GC Introduction of Other Therapeutic Substance into Female Reproductive, Via Natural or Artificial Opening (ICD-10-PCS; 2020-06-23)
PROC: 10D00Z1 Extraction of Products of Conception, Low, Open Approach (ICD-10-PCS; principal; 2020-06-24 15:49)
DX: O13.4 Gestational [pregnancy-induced] hypertension without significant proteinuria, complicating childbirth (principal); O36.5930 Maternal care for other known or suspected poor fetal growth, third trimester, not applicable or unspecified; Z3A.36 36 weeks gestation of pregnancy; O76 Abnormality in fetal heart rate and rhythm complicating labor and delivery; Z37.0 Single live birth

== ENCOUNTER → 2021-01-28 | Outpatient (REF) | payer OTHER ==
[~2021-01-28] MED LIST changes: +IBUP80TA PO; +PERCOCET PO; +TUMS500C PO
== END ==
LOC: M SFHCWAGY 13:17
PROVIDERS: ATTEND Advanced Practice Midwife
DX: Z12.4 Encounter for screening for malignant neoplasm of cervix (principal); R87.5 Abnormal microbiological findings in specimens from female genital organs; B96.89 Other specified bacterial agents as the cause of diseases classified elsewhere

== ENCOUNTER → 2021-01-29 | Outpatient (REF) | payer OTHER ==
[2021-01-29 13:39] LABS: FREE T4 1.26 NG/DL (0.76-1.46); THYROID STIMULATING HORMONE 1.09 uIU/ML (0.358-3.740)
== END ==
LOC: M PLALAB 10:03 → M SFHCADAM 10:07
PROVIDERS: ATTEND Advanced Practice Midwife
DX: R63.5 Abnormal weight gain (principal)

== ENCOUNTER → 2021-10-08 | Outpatient (CLI) | payer OTHER ==
[2021-10-08 15:30] LABS: BASO % 0.3 % (0.0-1.0); EOS % 0.3 % (0.0-3.0); HEMATOCRIT 39.7 % (36.0-47.0); HEMOGLOBIN 13.5 g/dl (12.0-15.5); LYMPH # 1.8 10^3/uL (1.5-5.0); LYMPH % 15.5 % (24.0-44.0); MEAN CORPUSCULAR HEMOGLOBIN 30.1 pg (27.0-33.0); MEAN CORPUSCULAR VOLUME 88.4 fl (80.0-96.0); MONO # 0.6 10^3/uL (0.0-0.8); MONO % 4.8 % (2.0-8.0); NEUTROPHILS # 9.2 10^3/uL (1.5-8.5); NEUTROPHILS % 78.5 % (36.0-66.0); PLATELET COUNT, AUTOMATED 266 10^3/uL (150-450); RED BLOOD COUNT 4.49 10^6/uL (4.00-5.40); WHITE BLOOD COUNT 11.8 10^3/uL (4.0-10.0)
[2021-10-08 16:41] LABS: HEPATITIS C VIRUS ABY INDEX < 0.0 INDEX (<0.8); HIV 1&2 SCREEN CENTAUR NEGATIVE (NEGATIVE)
== END ==
LOC: M PLALAB 12:09
PROVIDERS: ATTEND Advanced Practice Midwife
DX: Z34.91 Encounter for supervision of normal pregnancy, unspecified, first trimester (principal)

== ENCOUNTER → 2021-10-16 | Outpatient (CLI) | payer OTHER | LOC: M PLALAB 10:31 | PROVIDERS: ATTEND Advanced Practice Midwife | DX: Z34.80 Encounter for supervision of other normal pregnancy, unspecified trimester (principal) ==

== ENCOUNTER → 2021-11-27 | Outpatient (CLI) | payer OTHER | LOC: M WHC 13:43 | PROVIDERS: ATTEND Advanced Practice Midwife | DX: Z34.92 Encounter for supervision of normal pregnancy, unspecified, second trimester (principal) ==

== ENCOUNTER → 2021-12-03 | Outpatient (REF) | payer OTHER ==
[2021-12-03 15:29] LABS: GC DNA AMPLIFICATION NEGATIVE (NEGATIVE)
== END ==
LOC: M SFHCWAGY 13:08
PROVIDERS: ATTEND Advanced Practice Midwife
DX: Z34.91 Encounter for supervision of normal pregnancy, unspecified, first trimester (principal)

== ENCOUNTER → 2021-12-27 | Outpatient (CLI) | payer OTHER | LOC: M WHC 07:09 | PROVIDERS: ATTEND Advanced Practice Midwife | DX: Z36.2 Encounter for other antenatal screening follow-up (principal); Z3A.23 23 weeks gestation of pregnancy ==

== ENCOUNTER → 2022-01-29 | Outpatient (CLI) | payer OTHER ==
[2022-01-29 14:22] LABS: HEMATOCRIT 37.7 % (36.0-47.0); HEMOGLOBIN 12.5 g/dl (12.0-15.5); MEAN CORPUSCULAR HEMOGLOBIN 30.6 pg (27.0-33.0); MEAN CORPUSCULAR HGB CONC 33.2 g/dl (32.0-36.5); MEAN CORPUSCULAR VOLUME 92.4 fl (80.0-96.0); PLATELET COUNT, AUTOMATED 276 10^3/uL (150-450); RED BLOOD COUNT 4.08 10^6/uL (4.00-5.40); WHITE BLOOD COUNT 14.6 10^3/uL (4.0-10.0)
== END ==
LOC: M PLALAB 10:23
PROVIDERS: ATTEND Advanced Practice Midwife
DX: Z36.89 Encounter for other specified antenatal screening (principal)

== ENCOUNTER 2022-03-13 01:31 | Inpatient (IN) | payer OTHER ==
[~2022-03-13] VITALS: Ht 162.6 cm; Wt 97.7 kg
[2022-03-13] VITALS (12 sets, daily range): BP systolic 101–143; BP diastolic 58–88
[2022-03-13] MEDS ORDERED: LACTATED RINGER'S 1000 ML IV ONE (01:55)
[2022-03-13] MEDS: BETAMETHASONE SOLUSPAN 6MG/ML 5ML VIAL IM SCH ×2 (02:16→21:30)
[2022-03-13 02:21] LABS: HEMOGLOBIN 11.4 g/dl (12.0-15.5); MEAN CORPUSCULAR HEMOGLOBIN 30.2 pg (27.0-33.0); MEAN CORPUSCULAR HGB CONC 33.5 g/dl (32.0-36.5); MEAN CORPUSCULAR VOLUME 90.2 fl (80.0-96.0); PLATELET COUNT, AUTOMATED 231 10^3/uL (150-450); RED BLOOD COUNT 3.77 10^6/uL (4.00-5.40); WHITE BLOOD COUNT 15.3 10^3/uL (4.0-10.0)
[2022-03-13] MEDS ORDERED: HOME MED LIST COMPLETE! XX SCH (02:40)
[2022-03-13] MEDS: LR 1,000 ML IV SCH ×3 (03:01→17:55)
[2022-03-13 08:14] LABS: INFLUENZA A AMPLIFICATION NEGATIVE (NEGATIVE); INFLUENZA B AMPLIFICATION NEGATIVE (NEGATIVE)
[2022-03-13] MEDS ORDERED: AZITHROMYCIN 250MG TABLET PO ONE (10:55)
[2022-03-14 07:29] LABS: HEMATOCRIT 36.7 % (36.0-47.0); MEAN CORPUSCULAR HEMOGLOBIN 30.5 pg (27.0-33.0); MEAN CORPUSCULAR HGB CONC 32.7 g/dl (32.0-36.5); MEAN CORPUSCULAR VOLUME 93.1 fl (80.0-96.0); PLATELET COUNT, AUTOMATED 239 10^3/uL (150-450); RED BLOOD COUNT 3.94 10^6/uL (4.00-5.40); WHITE BLOOD COUNT 18.3 10^3/uL (4.0-10.0)
[2022-03-14 07:38] VITALS: BP 139/65
[2022-03-14 07:43] LABS: INR 0.88; PROTHROMBIN TIME 12.1 SECONDS (12.5-14.5)
[2022-03-14 07:44] LABS: PARTIAL THROMBOPLASTIN TIME 25.8 SECONDS (24.8-34.2)
[2022-03-14 10:00] VITALS: BP 143/81
[2022-03-14 12:20] VITALS: BP 130/62
[2022-03-14] MEDS: LR 1,000 ML IV SCH ×2 (14:02→19:54)
[2022-03-14] MEDS ORDERED: LACTATED RINGER'S 1000 ML IV STA (17:47)
[2022-03-14 17:48] LABS: HEMATOCRIT 35.6 % (36.0-47.0); HEMOGLOBIN 11.5 g/dl (12.0-15.5); MEAN CORPUSCULAR HEMOGLOBIN 30.2 pg (27.0-33.0); MEAN CORPUSCULAR HGB CONC 32.3 g/dl (32.0-36.5); MEAN CORPUSCULAR VOLUME 93.4 fl (80.0-96.0); PLATELET COUNT, AUTOMATED 261 10^3/uL (150-450); RED BLOOD COUNT 3.81 10^6/uL (4.00-5.40); WHITE BLOOD COUNT 18.5 10^3/uL (4.0-10.0)
[2022-03-14 17:48] LABS: URIC ACID 4.5 MG/DL (3.1-7.8)
[2022-03-14 17:50] LABS: LDH LACTATE DEHYDROGENASE 155 U/L (120-246)
[2022-03-14] MEDS ORDERED: OXYTOCIN INJ 10UNITS/ML 1ML VIAL IM PRN (17:50)
[2022-03-14] MEDS ORDERED: ceFAZolin SOD 2 GM in IV 1 EA IV ONE (17:50)
[2022-03-14] MEDS ORDERED: OXYTOCIN DRIP 30 UNITS in IV 1 EA IV PRN ×4 (17:50)
[2022-03-14] MEDS ORDERED: CARBOPROST TROMETHAMINE 250 MCG/ML AMP IM PRN (17:50)
[2022-03-14] MEDS ORDERED: TRANEXAMIC ACID INJection 1,000 MG in NS 100 ML IV PRN (17:50)
[2022-03-14] MEDS ORDERED: AZITHROMYCIN INJ 500 MG, VIAL MATE ADAPTER 1 EACH in NS 250 ML IV ONE (17:50)
[2022-03-14] MEDS ORDERED: BICITRA 30ML SOLN UDC PO ONE (17:50)
[2022-03-14 17:51] LABS: ALT/SGPT 10 U/L (7.0-40); AST/SGOT 17 U/L (<34); BILIRUBIN,TOTAL 0.4 MG/DL (0.3-1.2); CREATININE FOR GFR 0.52 MG/DL (0.55-1.30); GLOMERULAR FILTRATION RATE > 60.0 (>60)
[2022-03-14 17:57] LABS: INR 0.89; PROTHROMBIN TIME 12.2 SECONDS (12.5-14.5)
[2022-03-14 17:58] LABS: PARTIAL THROMBOPLASTIN TIME 24.5 SECONDS (24.8-34.2)
[2022-03-14] MEDS ORDERED: MORPHINE PRES-FREE INJ 10 MG/10 ML VIAL As Ordered ONE (19:50)
[2022-03-14] MEDS ORDERED: OXYTOCIN 30UNITS IN 0.9% NaCl 500ML IV BAG As Ordered ONE ×2 (19:50→22:01)
[2022-03-14] MEDS ORDERED: ONDANSETRON 4MG 2ML VIAL IV PRN (20:05)
[2022-03-14] MEDS ORDERED: OXYTOCIN DRIP 30 UNITS in IV 1 EA IV SCH (20:05)
[2022-03-14] MEDS ORDERED: PERCOCET 5MG/325MG TAB PO PRN (20:05)
[2022-03-14] MEDS ORDERED: RHOGAM 300MCG (1500IU) INJ IM SCH (20:05)
[2022-03-14] MEDS ORDERED: PROMETHAZINE 25 MG TAB PO PRN (20:05)
[2022-03-14] MEDS: KETOROLAC 30 MG/ML 1ML VIAL IV SCH (20:05)
[2022-03-14] MEDS ORDERED: SIMETHICONE 80MG CHEW TAB PO PRN (20:05)
[2022-03-14] MEDS ORDERED: ONDANSETRON 4MG 2ML VIAL As Ordered ONE (20:23)
[2022-03-14] MEDS ORDERED: PHENYLephrine 500MCG 5ML (100MCG/ML) SYRINGE As Ordered ONE ×2 (20:26→20:40)
[2022-03-14] MEDS ORDERED: ePHEDrine SULFATE 25 MG/5 ML(5MG/ML) SYRINGE As Ordered ONE (20:26)
[2022-03-14] MEDS ORDERED: ACETAMINOPHEN 1000MG 100ML IV BAG As Ordered ONE (20:41)
[2022-03-14] MEDS ORDERED: MEPERIDINE 50 MG/ML 1ML VIAL As Ordered ONE (20:52)
[2022-03-14] MEDS: DOCUSATE SODIUM 100MG CAPSULE PO SCH (21:00)
[2022-03-14] MEDS ORDERED: fentaNYL 100 MCG/2 ML INJECTION As Ordered ONE (21:14)
[2022-03-14] MEDS ORDERED: KETOROLAC 60MG 2ML VIAL As Ordered ONE (21:17)
[2022-03-14] MEDS ORDERED: diphenhydrAMINE 50MG/ML VIAL As Ordered ONE (21:24)
[2022-03-14 23:15] VITALS: BP 130/63
[2022-03-14 23:45] VITALS: BP 125/64
[2022-03-15 00:45] VITALS: BP 127/66
[2022-03-15 01:45] VITALS: BP 128/61
[2022-03-15] MEDS: LR 1,000 ML IV SCH (02:46)
[2022-03-15] MEDS: KETOROLAC 30 MG/ML 1ML VIAL IV SCH ×2 (02:46→09:06)
[2022-03-15] MEDS: MOM 30ML SUSPENSION UDC PO PRN ×2 (03:26→18:41)
[2022-03-15 06:00] VITALS: BP 126/67
[2022-03-15 06:42] LABS: HEMATOCRIT 28.6 % (36.0-47.0); MEAN CORPUSCULAR HEMOGLOBIN 30.5 pg (27.0-33.0); MEAN CORPUSCULAR HGB CONC 32.5 g/dl (32.0-36.5); MEAN CORPUSCULAR VOLUME 93.8 fl (80.0-96.0); PLATELET COUNT, AUTOMATED 205 10^3/uL (150-450); RED BLOOD COUNT 3.05 10^6/uL (4.00-5.40); WHITE BLOOD COUNT 21.6 10^3/uL (4.0-10.0)
[2022-03-15 06:44] LABS: HEMOGLOBIN 9.3 g/dl (12.0-15.5)
[2022-03-15] MEDS: DOCUSATE SODIUM 100MG CAPSULE PO SCH ×2 (09:07→21:38)
[2022-03-15] MEDS: PRENATAL VITAMINS CHEWABLE TABLET PO SCH (09:07)
[2022-03-15 18:00] VITALS: BP 140/72
[2022-03-15] MEDS: IBUPROFEN 800 MG TAB PO SCH (18:42)
[2022-03-15 21:58] VITALS: BP 130/58
[2022-03-15] MEDS: PERCOCET 5MG/325MG TAB PO PRN (22:10)
[2022-03-16] MEDS: IBUPROFEN 800 MG TAB PO SCH ×2 (01:21→08:50)
[2022-03-16 02:02] VITALS: BP 109/73
[2022-03-16] MEDS: PERCOCET 5MG/325MG TAB PO PRN (03:31)
[2022-03-16 06:00] VITALS: BP 120/67
[2022-03-16] MEDS ORDERED: PERCOCET PO (07:20)
[2022-03-16] MEDS ORDERED: COLA100C5 PO (07:20)
[2022-03-16] MEDS ORDERED: IBUP80TA PO (07:20)
[2022-03-16] MEDS: MOM 30ML SUSPENSION UDC PO PRN (08:50)
[2022-03-16] MEDS: DOCUSATE SODIUM 100MG CAPSULE PO SCH (08:50)
[2022-03-16] MEDS: PRENATAL VITAMINS CHEWABLE TABLET PO SCH (08:50)
[2022-03-16] MEDS ORDERED: MEASLES,MUMPS,RUBELLA VACCINE INJ (MMR-II) SC.IMMUN ONE (09:00)
== END 2022-03-16 10:00 | disposition home or self-care (01) | DRG 540 ==
LOC: M LDO 01:31 → M LDI 03-14 06:57 → M OBS 03-14 11:15
PROVIDERS: ADMIT Advanced Practice Midwife; ATTEND Obstetrics & Gynecology
PROC: 10D00Z1 Extraction of Products of Conception, Low, Open Approach (ICD-10-PCS; principal; 2022-03-14 20:15)
DX: O60.14X0 Preterm labor third trimester with preterm delivery third trimester, not applicable or unspecified (principal); O45.93 Premature separation of placenta, unspecified, third trimester; O34.211 Maternal care for low transverse scar from previous cesarean delivery; Z3A.34 34 weeks gestation of pregnancy; O99.52 Diseases of the respiratory system complicating childbirth; J45.909 Unspecified asthma, uncomplicated; O99.344 Other mental disorders complicating childbirth; F41.9 Anxiety disorder, unspecified; Z37.0 Single live birth

== ENCOUNTER → 2022-06-13 | Outpatient (REF) | payer OTHER ==
[~2022-06-13] MED LIST changes: +COLA100C5 PO
== END ==
LOC: M LAB REF 15:06
PROVIDERS: ATTEND Advanced Practice Midwife
DX: L91.8 Other hypertrophic disorders of the skin (principal)

== ENCOUNTER → 2022-09-04 | Outpatient (CLI) | payer OTHER | LOC: M PLALAB 15:29 | PROVIDERS: ATTEND Advanced Practice Midwife | DX: N92.6 Irregular menstruation, unspecified (principal) ==